=== PATIENT | female | born 1940 | race Caucasian/White ===

== ENCOUNTER 2018-05-09 14:23 | Outpatient (CLI) | payer MEDICARE, MEDICAID ==
--- NOTE | 2018-05-09 14:48 | RAD ---
TWO VIEWS CHEST: Comparison: None. History: Persistent cough. FINDINGS: Two views of the chest shows a normal sized cardiomediastinal silhouette with atherosclerotic calcifi cations in the aorta. There is no evidence of consolidation, mass, or pleural effusion. IMPRESSION: No evidence of acute cardiopulmonary disease. POS: CET
== END 2018-05-09 14:24 | disposition home or self-care (01) ==
LOC: MADRAD 14:23
PROVIDERS: ATTEND General Practice
DX: R05 Cough (principal)
CPT/HCPCS: 71046

== ENCOUNTER 2018-06-20 12:00 | Outpatient (CLI) | payer MEDICARE, MEDICAID ==
[2018-06-20 12:31] LABS: Anion Gap 16 mmol/L (10-20); BUN (Urea Nitrogen) 18 mg/dL (9.8-20.1); Calc. Creatinine Clearance 0 mL/min (70-130); Carbon Dioxide 28 mmol/L (23-31); Chloride 102 mmol/L (98-107); Estimated GFR-MDRD 43; Glucose 124 mg/dL (83-110); Potassium 3.9 mmol/L (3.5-5.1); Sodium 142 mmol/L (136-145)
[2018-06-20 12:56] LABS: Bilirubin Small (Negative); Blood, Urine Negative (Negative); Clarity Clear (Clear); Glucose, Urine (Dipstick) Negative (Negative); Leukocyte Trace (Negative); Nitrite Negative (Negative); Protein, Urine (Dipstick) 100 mg/dL (Neg-Trace); Urobilinogen 0.2 mg/dL (0.2-1.0); pH, Urine 5.5 (5.0-9.0)
[2018-06-20 13:05] LABS: RBC/HPF 0-3 HPF (0-3); Squamous Epithelial 0-3 HPF (0-3); WBC/HPF 0-3 HPF (0-3); Yeast-All Forms Rare HPF (None Seen)
--- NOTE | 2018-06-20 14:19 | ULT ---
RENAL SONOGRAM: Date: 06-20-18 History: Chronic kidney disease. FINDINGS: The kidneys demonstrate a normal sonographic appearance bilaterally without evidence of a renal mass, renal calculus or hydronephrosis. No perinephric fluid collection is seen. The right kidney measures 9.5 cm x 3.3 cm with the left kidney measuring 9 cm x 4.4 cm. The urinary bladder is decompressed and not able to be evaluated on this exam. IMPRESSION: 1. Normal appearing bilateral kidneys without evidence of hydronephrosis. 2. Urinary bladder is completely decompressed. POS: PERI
== END 2018-06-20 12:01 | disposition home or self-care (01) ==
LOC: MADLAB 12:00
PROVIDERS: ATTEND Internal Medicine Nephrology
DX: N18.3 Chronic kidney disease, stage 3 (moderate) (principal); N32.89 Other specified disorders of bladder
CPT/HCPCS: 36415; 76770; 80048; 81001

== ENCOUNTER 2019-05-11 10:29 | Emergency (ER) | payer MEDICARE, MEDICAID ==
--- NOTE | 2019-05-11 11:40 | CT ---
Head CT without contrast 05/11/2019: COMPARISON: 03/07/2014 HISTORY: Fall, head trauma with headache TECHNIQUE: Axial CT imaging at 5 mm intervals from vertex through skull base without contrast FINDINGS: Imaged paranasal sinuses and mastoid air cells are grossly unremarkable. No displaced diego rial fracture. No intracranial hemorrhage, midline shift, mass effect, or ventricular enlargement. IMPRESSION: No acute findings.
== END 2019-05-11 12:08 | disposition home or self-care (01) ==
LOC: MADERS 10:29
DX: S00.83XA Contusion of other part of head, initial encounter (principal); S80.212A Abrasion, left knee, initial encounter; S80.211A Abrasion, right knee, initial encounter; E78.5 Hyperlipidemia, unspecified; E78.00 Pure hypercholesterolemia, unspecified; I10 Essential (primary) hypertension; F41.9 Anxiety disorder, unspecified; F32.9 Major depressive disorder, single episode, unspecified; Z79.899 Other long term (current) drug therapy; W01.0XXA Fall on same level from slipping, tripping and stumbling without subsequent striking against object, initial encounter
CPT/HCPCS: 70450

== ENCOUNTER 2021-07-02 11:56 | Outpatient (CLI) | payer MEDICARE, MEDICAID | END 2021-07-02 11:57 | disposition home or self-care (01) | LOC: MADRAD 11:56 | PROVIDERS: ATTEND Nurse Practitioner Family | DX: M25.551 Pain in right hip (principal); M16.0 Bilateral primary osteoarthritis of hip; Z98.1 Arthrodesis status | CPT/HCPCS: 72170 ==

== ENCOUNTER 2022-08-12 16:36 | Emergency (ER) | payer MEDICARE, MEDICAID | END 2022-08-12 17:55 | disposition home or self-care (01) | LOC: MADERS 16:36 | DX: M23.92 Unspecified internal derangement of left knee (principal); I10 Essential (primary) hypertension; E78.00 Pure hypercholesterolemia, unspecified; Z79.899 Other long term (current) drug therapy ==